=== PATIENT | female | born 1990 | race Two or more races ===

== ENCOUNTER 2023-10-12 10:41 | Inpatient (IN) | payer OTHER ==
[~2023-10-12] VITALS: Ht 149.9 cm; Wt 2.7 kg
[2023-10-24 06:05] LABS: HEMATOCRIT 33.1 % (36.0-45.00); HEMOGLOBIN 10.9 g/dL (12.0-15.00); MEAN CORPUSCULAR HGB CONC 32.9 g/dl (32.0-36.0); PLATELET COUNT 312 K/uL (150-450); RED BLOOD COUNT 4.35 M/uL (4.00-6.00); RED CELL DISTRIBUTION WIDTH 14.6 % (11.5-14.5)
[2023-10-24 06:30] LABS: INR 0.95; PARTIAL THROMBOPLASTIN TIME 25.4 SECONDS (22.0-34.0)
[2023-10-24] MEDS ORDERED: OBSTETRIX ONE1 EAC1 PO (06:36)
[2023-10-24 07:26] LABS: ALBUMIN 3.1 gm/dL (3.4-5.0); BILIRUBIN TOTAL 0.43 mg/dL (0.3-1.2); CALCIUM 9.7 mg/dL (8.5-10.1); CREATININE SERUM 0.64 mg/dL (0.55-1.02); GFR 107.54; POTASSIUM 4.08 mEq/L (3.5-5.1); TOTAL PROTEIN 7.1 gm/dL (6.4-8.2)
[2023-10-24 21:31] LABS: ABG PH 7.323 (7.35-7.45); ABG pCO2 39.4 mmHg (35-45); BASE EXCESS -5.6 mmol/l; SaO2 26.1 %; Tco2 21.2 mmol/l; o2 21 %
[2023-10-25 09:58] LABS: HEMATOCRIT 28.3 % (36.0-45.00); HEMOGLOBIN 9.6 g/dL (12.0-15.00); MEAN CELL VOLUME 75.8 fL (80.00-100.00); MEAN CORPUSCULAR HEMOGLOBIN 25.6 pg (27.00-32.0); MEAN CORPUSCULAR HGB CONC 33.8 g/dl (32.0-36.0); PLATELET COUNT 247 K/uL (150-450); RED BLOOD COUNT 3.73 M/uL (4.00-6.00); RED CELL DISTRIBUTION WIDTH 15.1 % (11.5-14.5)
== END 2023-10-26 14:47 | disposition home or self-care (01) | DRG 788 ==
LOC: LDR 10:41 → O/R 10-24 19:30 → OB/GYN 10-24 21:38
PROVIDERS: Obstetrics & Gynecology; ADMIT Obstetrics & Gynecology; ATTEND Obstetrics & Gynecology
PROC: 4A1HXCZ Monitoring of Products of Conception, Cardiac Rate, External Approach (ICD-10-PCS; 2023-10-24)
PROC: 10D00Z1 Extraction of Products of Conception, Low, Open Approach (ICD-10-PCS; principal; 2023-10-24 18:30)
DX: O33.8 Maternal care for disproportion of other origin (principal); Z3A.40 40 weeks gestation of pregnancy; Z37.0 Single live birth; Z20.822 Contact with and (suspected) exposure to COVID-19

== ENCOUNTER 2023-10-22 11:43 | Outpatient (CLI) | payer OTHER | END 2023-10-22 12:25 | disposition home or self-care (01) | LOC: NST 11:43 | PROVIDERS: ATTEND Obstetrics & Gynecology Maternal & Fetal Medicine | DX: Z34.83 Encounter for supervision of other normal pregnancy, third trimester (principal) ==

== ENCOUNTER 2023-10-23 17:35 | Outpatient (CLI) | payer OTHER ==
[~2023-10-23] VITALS: Ht 149.9 cm; Wt 62.1 kg
[2023-10-23] MEDS ORDERED: RINGERS SOLUTION,LACTATED 1,000 ML IV SCH (19:00)
[2023-10-24] MEDS ORDERED: MORPHINE SULFATE 4 MG/ML CARTRIDGE IV ONE (01:00)
[2023-10-24] MEDS ORDERED: OBSTETRIX ONE1 EAC1 PO (06:36)
== END 2023-10-24 04:09 | disposition still patient (30) ==
LOC: OBS/DEL 17:35
PROVIDERS: ATTEND Obstetrics & Gynecology
DX: O82 Encounter for cesarean delivery without indication (principal)